=== PATIENT | male | born 1950 | race Caucasian/White ===

== ENCOUNTER 2018-04-27 13:47 | Inpatient (IN) | END 2018-04-27 16:14 | disposition left against medical advice (07) | DRG 951 | LOC: N.2W 15:10 | PROVIDERS: ADMIT Internal Medicine Pulmonary Disease; ATTEND Internal Medicine Pulmonary Disease ==

== ENCOUNTER 2019-04-17 10:14 | Inpatient (IN) ==
[2019-04-17] MEDS ORDERED: NITROGLYCERIN 2% OINT 1 INCH/GM PACK TOP STA (10:51)
[2019-04-17] MEDS ORDERED: FUROSEMIDE 40 MG/4 ML VIAL IV STA (10:52)
[2019-04-17 11:05] LABS: Basophils # 0.1 10*3/uL (0.0-0.2); Basophils % 0.6 % (0.0-0.8); Eosinophils # 0.2 10*3/uL (0.0-0.87); Eosinophils % 1.5 % (0.00-10.9); Hematocrit 42.4 VOL% (42.0-52.0); Hemoglobin 13.8 GM/DL (14.0-18.0); Immature Granulocytes % 0.4 %; Immature Granulocytes Absolute 0.04 #; Lymphocytes # 1.2 10*3/uL (1.4-4.0); Lymphocytes % 11.7 % (21.2-54.2); Mean Corpuscular HGB Conc 32.5 GM/DL (32-36); Mean Corpuscular Volume 100.2 FL (87-102); Mean Platelet Volume 10.4 FL (9.6-12.0); Monocytes % 9.2 % (1.7-12.7); Neutrophils % 76.6 % (38.7-73.9); Platelet Count 148 T/CUMM (130-400); Red Blood Count 4.23 MC/CUMM (3.8-5.5); Red Cell Distribution Width 15.3 % (9.3-17.3)
[2019-04-17 11:10] LABS: INR 2.9
[2019-04-17 11:28] LABS: Albumin 3.7 G/DL (3.4-5.0); Bilirubin,Total 2.2 MG/DL (0.2-1.0); Calcium 8.8 MG/DL (8.5-10.1); Osmolality,Calculated 281.4 MOS/KG (273-304)
[2019-04-17] MEDS ORDERED: METOPROLOL TARTRATE 5 MG/5 ML VIAL IV ONE (11:46)
[2019-04-17] MEDS ORDERED: METOPROLOL TARTRATE 5 MG/5 ML VIAL IV STA (11:49)
[2019-04-17] MEDS ORDERED: ALBUTEROL 2.5 MG/3 ML NEB RESP TX PRN (14:03)
[2019-04-17] MEDS ORDERED: ACETAMINOPHEN 325 MG TABLET PO PRN (14:03)
[2019-04-17] MEDS ORDERED: predniSONE 20 MG TABLET PO PRN (14:06)
[2019-04-17] MEDS ORDERED: NITROGLYCERIN SL 0.4 MG TABLET SL PRN (14:06)
[2019-04-17] MEDS ORDERED: LABETALOL 100 MG/20 ML VIAL IV PRN (14:36)
[2019-04-17] MEDS ORDERED: PNEUMOCOCCAL VACCINE (13 VALENT) 0.5 ML SYRINGE IM ONE (14:53)
[2019-04-17] MEDS ORDERED: MAGNESIUM SULF RIDER 4 GM in PREMIX 1 EACH IV PRN ×2 (15:04→18:02)
[2019-04-17] MEDS ORDERED: MAGNESIUM SULF RIDER 2 GM in PREMIX 1 EACH IV PRN ×2 (15:04→18:02)
[2019-04-17] MEDS ORDERED: WARFARIN 5 MG TABLET PO SCH (18:00)
[2019-04-17] MEDS: PARoxetine 20 MG TABLET PO SCH (20:59)
[2019-04-17] MEDS: ENALAPRIL 10 MG TABLET PO SCH (20:59)
[2019-04-17] MEDS: ASPIRIN EC 81 MG TABLET PO SCH (20:59)
[2019-04-17] MEDS: diphenhydrAMINE CAP 25 MG CAPSULE PO SCH (20:59)
[2019-04-17] MEDS: CARVEDILOL 12.5 MG TABLET PO SCH (20:59)
[2019-04-17] MEDS: LATANOPROST 0.005% OPH SOLN 2.5 ML BOTTLE BOTH EYES SCH (20:59)
[2019-04-17] MEDS: ATORVASTATIN 80 MG TABLET PO SCH (20:59)
[2019-04-17] MEDS ORDERED: CARVEDILOL 6.25 MG TABLET PO SCH (21:00)
[2019-04-17] MEDS: ALLOPURINOL 100 MG TABLET PO SCH (21:00)
[2019-04-17] MEDS: ALPRAZolam 0.25 MG TABLET PO SCH (21:00)
[2019-04-18 03:46] LABS: Basophils % 0.5 % (0.0-0.8); Eosinophils # 0.3 10*3/uL (0.0-0.87); Eosinophils % 3.2 % (0.00-10.9); Hematocrit 40.2 VOL% (42.0-52.0); Hemoglobin 12.9 GM/DL (14.0-18.0); Immature Granulocytes % 0.1 %; Immature Granulocytes Absolute 0.01 #; Lymphocytes # 1.8 10*3/uL (1.4-4.0); Lymphocytes % 23.2 % (21.2-54.2); Mean Corpuscular HGB Conc 32.1 GM/DL (32-36); Mean Corpuscular Volume 99.8 FL (87-102); Mean Platelet Volume 10.2 FL (9.6-12.0); Monocytes % 9.5 % (1.7-12.7); Neutrophils % 63.5 % (38.7-73.9); Platelet Count 130 T/CUMM (130-400); Red Blood Count 4.03 MC/CUMM (3.8-5.5); Red Cell Distribution Width 15.2 % (9.3-17.3); White Blood Count 7.9 T/CUMM (4-12)
[2019-04-18 04:02] LABS: PT Patient Result 32.1 SECS (9.6-12.2)
[2019-04-18 04:22] LABS: Albumin 3.5 G/DL (3.4-5.0); Bilirubin,Direct 0.5 MG/DL (0.0-0.20); Bilirubin,Indirect 1.7 MG/DL (0.0-1.0); Bilirubin,Total 2.2 MG/DL (0.2-1.0); Calcium 9.1 MG/DL (8.5-10.1); Osmolality,Calculated 287.8 MOS/KG (273-304); Total Protein 6.4 G/DL (6.4-8.3)
[2019-04-18 04:24] LABS: Albumin 3.4 G/DL (3.4-5.0); Bilirubin,Total 2.3 MG/DL (0.2-1.0); Osmolality,Calculated 287.8 MOS/KG (273-304); Risk Ratio 1.47; Thyroid Stimulating Hormone 1.57 uIU/ml (0.358-3.74); Total Protein 6.6 G/DL (6.4-8.3); VLDL CHOLESTEROL 12.4 MG/DL
[2019-04-18] MEDS: MAGNESIUM OXIDE 400 MG TABLET PO SCH (08:14)
[2019-04-18] MEDS: hydroCHLOROthiazide 25 MG TABLET PO SCH (08:14)
[2019-04-18] MEDS: CHOLECALCIFEROL 1,000 UNIT TABLET PO SCH (08:15)
[2019-04-18] MEDS: ASCORBIC ACID 500 MG TABLET PO SCH (08:15)
[2019-04-18] MEDS: CARVEDILOL 12.5 MG TABLET PO SCH (08:15)
[2019-04-18] MEDS: ALLOPURINOL 100 MG TABLET PO SCH ×2 (08:15→22:15)
[2019-04-18] MEDS ORDERED: PANTOPRAZOLE 40 MG TABLET PO SCH ×2 (09:00)
[2019-04-18] MEDS ORDERED: CARVEDILOL 12.5 MG TABLET PO ONE (09:38)
[2019-04-18] MEDS ORDERED: LEVALBUTEROL 0.63 MG/3 ML NEB RESP TX SCH (11:00)
[2019-04-18] MEDS: DORNASE ALFA 2.5 MG/2.5 ML VIAL RESP TX SCH ×2 (11:10→19:10)
[2019-04-18] MEDS: methylPREDNISolone SOD SUC 40 MG/1 ML VIAL IV SCH ×2 (11:17→22:19)
[2019-04-18] MEDS: MONTELUKAST 10 MG TABLET PO SCH ×2 (11:17→22:13)
[2019-04-18] MEDS: CLINDAMYCIN INJ 300 MG in PREMIX 1 EACH IV SCH ×3 (11:17→22:05)
[2019-04-18] MEDS: LEVOFLOXACIN INJ 500 MG in PREMIX 1 EACH IV SCH (11:50)
[2019-04-18] MEDS: LEVALBUTEROL 0.63 MG/3 ML NEB RESP TX SCH ×2 (13:00→19:00)
[2019-04-18] MEDS: CARVEDILOL 25 MG TABLET PO SCH (17:47)
[2019-04-18] MEDS: FUROSEMIDE 40 MG/4 ML VIAL IV SCH (17:47)
[2019-04-18] MEDS: ASPIRIN EC 81 MG TABLET PO SCH (22:12)
[2019-04-18] MEDS: PARoxetine 20 MG TABLET PO SCH (22:13)
[2019-04-18] MEDS: diphenhydrAMINE CAP 25 MG CAPSULE PO SCH (22:13)
[2019-04-18] MEDS: PANTOPRAZOLE 40 MG TABLET PO SCH (22:13)
[2019-04-18] MEDS: ATORVASTATIN 80 MG TABLET PO SCH (22:13)
[2019-04-18] MEDS: ENALAPRIL 10 MG TABLET PO SCH (22:14)
[2019-04-18] MEDS: LATANOPROST 0.005% OPH SOLN 2.5 ML BOTTLE BOTH EYES SCH (22:15)
[2019-04-18] MEDS: ALPRAZolam 0.25 MG TABLET PO SCH (22:15)
[2019-04-18 22:19] VITALS: BP 120/83
[2019-04-19] MEDS: LEVALBUTEROL 0.63 MG/3 ML NEB RESP TX SCH ×3 (01:25→13:30)
[2019-04-19 04:24] LABS: Basophils % 0.1 % (0.0-0.8); Hematocrit 39.1 VOL% (42.0-52.0); Hemoglobin 12.7 GM/DL (14.0-18.0); Immature Granulocytes % 0.6 %; Immature Granulocytes Absolute 0.06 #; Lymphocytes # 0.7 10*3/uL (1.4-4.0); Lymphocytes % 6.8 % (21.2-54.2); Mean Corpuscular HGB Conc 32.5 GM/DL (32-36); Mean Corpuscular Volume 99.7 FL (87-102); Mean Platelet Volume 10.7 FL (9.6-12.0); Monocytes % 2.1 % (1.7-12.7); Neutrophils % 90.4 % (38.7-73.9); Platelet Count 124 T/CUMM (130-400); Red Blood Count 3.92 MC/CUMM (3.8-5.5); Red Cell Distribution Width 14.8 % (9.3-17.3); White Blood Count 10.1 T/CUMM (4-12)
[2019-04-19 04:39] LABS: PT Patient Result 42.9 SECS (9.6-12.2)
[2019-04-19 04:51] LABS: Albumin 3.3 G/DL (3.4-5.0); Bilirubin,Total 1.2 MG/DL (0.2-1.0); Calcium 8.7 MG/DL (8.5-10.1); Osmolality,Calculated 282.7 MOS/KG (273-304); Total Protein 6.7 G/DL (6.4-8.3)
[2019-04-19] MEDS: CLINDAMYCIN INJ 300 MG in PREMIX 1 EACH IV SCH ×2 (05:40→10:32)
[2019-04-19] MEDS: DORNASE ALFA 2.5 MG/2.5 ML VIAL RESP TX SCH (07:20)
[2019-04-19] MEDS: ALLOPURINOL 100 MG TABLET PO SCH (08:58)
[2019-04-19] MEDS: ASCORBIC ACID 500 MG TABLET PO SCH (08:58)
[2019-04-19] MEDS: CHOLECALCIFEROL 1,000 UNIT TABLET PO SCH (08:58)
[2019-04-19] MEDS: MAGNESIUM OXIDE 400 MG TABLET PO SCH (08:58)
[2019-04-19] MEDS: hydroCHLOROthiazide 25 MG TABLET PO SCH (08:58)
[2019-04-19] MEDS: PANTOPRAZOLE 40 MG TABLET PO SCH (08:58)
[2019-04-19] MEDS: MONTELUKAST 10 MG TABLET PO SCH (08:58)
[2019-04-19] MEDS: CARVEDILOL 25 MG TABLET PO SCH (08:58)
[2019-04-19] MEDS: FUROSEMIDE 40 MG/4 ML VIAL IV SCH (08:59)
[2019-04-19] MEDS: methylPREDNISolone SOD SUC 40 MG/1 ML VIAL IV SCH (10:30)
[2019-04-19] MEDS: LEVOFLOXACIN INJ 500 MG in PREMIX 1 EACH IV SCH (11:03)
== END 2019-04-19 15:16 | disposition home or self-care (01) | DRG 177 ==
LOC: N.ED 10:14 → N.EDINP 12:39 → N.ICU 14:02
PROVIDERS: ADMIT Internal Medicine; ATTEND Internal Medicine